=== PATIENT | female | born 1930 | race Caucasian/White ===

== ENCOUNTER 2019-01-23 20:22 | Observation (INO) | payer MEDICARE, OTHER ==
[2019-01-23 22:21] LABS: ANION GAP 14.7; CHLORIDE,CL 100 mmol/L (101-111); SODIUM,NA 136 mmol/L (135-145)
--- NOTE | 2019-01-23 22:26 | EDM.PDOC ---
"ED HPI GENERAL MEDICAL PROBLEM - General Chief Complaint: General Stated Complaint: LEGS SWELLING Time Seen by Provider: 01/23/19 20:40 Source of Information: Reports: Patient History Limitations: Reports: Language Barrier (hard of hearing) - History of Present Illness INITIAL COMMENTS - FREE TEXT/NARRATIVE: ED ambulatory with c/o swelling to lower legs, usually just one but now both. Limiting her water today and not helping. Denies chest pain or shortness of breath, admits to tiring easily for long time. Hx afib. refusing anticoagulants because the way they make her feel. family state patient aware of increased risk for stroke, but does take baby aspirin daily. Head feels stuffy and occasional productive cough clear phlegm. Daughters report BP high 2 weeks ago, noticed patient not taking meds correctly then dose changed and now taking consistently. No new changes in weakness. Has sused walker since last winter. - Related Data Allergies Allergy/AdvReac Type Severity Reaction Status Date / Time No Known Allergies Allergy Verified 01/24/19 00:29 Home Meds: Home Meds Antiox#10/Om3/DHA/EPA/Lut/Zeax [I-Caps with Lutein-[place] 3 SFG] 1 each PO BID [History] Levothyroxine [Levothroid] 137 mcg PO ACBREAKFAST 01/24/19 [History] Lisinopril 10 mg PO DAILY 01/24/19 [History] Potassium Chloride 10 meq PO DAILY 01/24/19 [History] Simvastatin 20 mg PO DAILY 01/24/19 [History] Sodium Chloride 15 ml OP QID PRN 01/24/19 [History] amLODIPine [Norvasc] 5 mg PO DAILY 01/24/19 [History] hydroCHLOROthiazide [Hydrochlorothiazide] 25 mg PO DAILY 01/24/19 [History] Past Medical History HEENT History: Reports: Cataract, Hard of Hearing, Macular Degeneration Cardiovascular History: Reports: Afib, High Cholesterol, Hypertension Endocrine/Metabolic History: Reports: Osteoporosis Other Endocrine/Metabolic History: daughter states mom has something wrong with her thyroid. - Past Surgical History HEENT Surgical History: Reports: Cataract Surgery GI Surgical History: Reports: Cholecystectomy Female Surgical History: Reports: Hysterectomy Social & Family History - Family History Family Medical History: Noncontributory - Tobacco Use Smoking Status *Q: Never Smoker Second Hand Smoke Exposure: No - Caffeine Use Caffeine Use: Reports: None - Recreational Drug Use Recreational Drug Use: No ED ROS GENERAL - Review of Systems Review Of Systems: See Below Constitutional: Reports: Malaise, Fatigue. Denies: Fever, Chills, Diaphoresis, Decreased Appetite HEENT: Reports: Other (limited vision bilateral macualr degeneration) Cardiovascular: Reports: Blood Pressure Problem (2 weeks ago high,), Edema. Denies: Chest Pain, Orthopnea, Syncope Endocrine: Reports: No Symptoms GI/Abdominal: Reports: No Symptoms : Reports: No Symptoms Musculoskeletal: Reports: No Symptoms Neurological: Reports: Difficulty Walking (feels off balance) Psychiatric: Denies: Confusion ED EXAM, GENERAL - Physical Exam Exam: See Below Exam Limited By: No Limitations General Appearance: Alert, No Apparent Distress Eye Exam: Bilateral Eye: EOMI (sluggish), PERRL Ears: Normal External Exam, Hearing Loss Ear Exam: Bilateral Ear: Canal Normal, TM normal Nose: Normal Inspection Throat/Mouth: Normal Inspection Head: Atraumatic, Normocephalic Neck: Normal Inspection Respiratory/Chest: No Respiratory Distress, Lungs Clear, Decreased Breath Sounds (bilateral bases) Cardiovascular: Normal Peripheral Pulses, Irregularly Irregular. No: No Edema ( 3+) GI/Abdominal: Normal Bowel Sounds, Soft Back Exam: Full Range of Motion Extremities: Normal Range of Motion, Other (3 + edema bilateral low4er extremities below knees). No: No Pedal Edema, Increased Warmth Neurological: Alert, Oriented, Normal Cognition, Normal Gait, No Motor/Sensory Deficits, Other (no weakness ) Psychiatric: Normal Affect, Normal Mood Skin Exam: Warm, Dry, Intact, Normal Color Course - Vital Signs Last Recorded V/S: Last Vital Signs Temp 98.9 F 01/24/19 00:05 Pulse 97 01/24/19 00:05 Resp 16 01/24/19 00:05 BP 146/83 H 01/24/19 00:05 Pulse Ox 95 01/24/19 00:05 - Orders/Labs/Meds Orders: Active Orders 24 hr Category Date Time Status EKG 12 Lead [EKG Documentation Completion] [RC] URGENT Care 01/23/19 21:26 Active Head wo Cont [CT] Urgent Exams 01/23/19 22:36 Taken Code Status [Resuscitation Status] Stat Resus Stat 01/23/19 22:37 Ordered Medication Orders Enoxaparin Sodium (Lovenox) 40 mg SUBCUT DAILY [facility] Last Admin: 01/24/19 02:27 Dose: 40 mg Furosemide (Lasix) 40 mg IVPUSH DAILY [facility] Hydrochlorothiazide (Hydrochlorothiazide) 25 mg PO DAILY [facility] Levothyroxine Sodium (Levothyroxine) 112 mcg PO ACBREAKFAST RISA Levothyroxine Sodium (Levothyroxine) 25 mcg PO ACBREAKFAST [facility] Lisinopril (Prinivil) 10 mg PO DAILY [facility] Multivitamins/Minerals (I-Luis Fernando) 1 each PO BID RISA Simvastatin (Zocor) 20 mg PO DAILY [facility] Sodium Chloride (Saline Flush) 10 ml FLUSH ASDIRECTED PRN PRN Reason: Keep Vein Open Sodium Chloride (Saline Flush) 10 ml FLUSH ASDIRECTED PRN PRN Reason: Keep Vein Open Sodium Chloride (Jose De Jesus 128 5% Ophth Soln) 15 ml EYEBOTH QID PRN PRN Reason: Dry Eyes Labs: Laboratory Tests 01/23/19 01/23/19 01/23/19 Range/Units 21:42 21:42 21:42 WBC 6.2 (5.0-10.0) 10^3/uL RBC 4.80 (4.2-5.4) 10^6/uL Hgb 13.4 (12.0-16.0) g/dL Hct 40.2 (37.0-47.0) % MCV 83.8 (80-100) fL MCH 27.9 (27.0-34.0) pg MCHC 33.3 (33.0-35.0) g/dL Plt Count 261 (150-450) 10^3/uL Neut % (Auto) 57.5 (42.2-75.2) % Lymph % (Auto) 21.1 (20.5-50.1) % [place] % (Auto) 16.6 H (2-8) % Eos % (Auto) 4.2 H (1.0-3.0) % Baso % (Auto) 0.6 (0.0-1.0) % PT 9.8 (9.0-12.0) SEC INR 1.0 (0.9-1.2) Sodium 136 (135-145) mmol/L Potassium 3.7 (3.6-5.0) mmol/L Chloride 100 L (101-111) mmol/L Carbon Dioxide 25.0 (21.0-31.0) mmol/L Anion Gap 14.7 BUN 25 H (7-18) mg/dL Creatinine 1.2 (0.6-1.3) mg/dL Est Cr Clr Drug Dosing 25.14 mL/min Estimated GFR (MDRD) 42 BUN/Creatinine Ratio 20.83 Glucose 97 (74-105) mg/dL Calcium 9.1 (8.4-10.2) mg/dl Total Bilirubin 0.6 (0.2-1.0) mg/dL AST 17 (10-42) IU/L ALT 13 (10-60) IU/L Alkaline Phosphatase 62 (42-121) IU/L Troponin I < 0.02 (0.00-0.02) ng/ml B-Natriuretic Peptide 198 H (0-100) pg/ml Total Protein 6.9 (6.7-8.2) g/dl Albumin 4.2 (3.2-5.5) g/dl Globulin 2.7 Albumin/Globulin Ratio 1.56 TSH, Ultra Sensitive (0.45-5.33) uIu/mL Urine Color (YELLOW) Urine Appearance (CLEAR) Urine pH (5.0-9.0) Ur Specific [place] (1.005-1.030) Urine Protein (NEGATIVE) Urine Glucose (UA) (NEGATIVE) Urine Ketones (NEGATIVE) Urine Occult Blood (NEGATIVE) Urine Nitrite (NEGATIVE) Urine Bilirubin (NEGATIVE) Urine Urobilinogen (0.2-1.0) mg/dL Ur Leukocyte Esterase (NEGATIVE) 01/23/19 01/23/19 Range/Units 21:42 22:15 WBC (5.0-10.0) 10^3/uL RBC (4.2-5.4) 10^6/uL Hgb (12.0-16.0) g/dL Hct (37.0-47.0) % MCV (80-100) fL MCH (27.0-34.0) pg MCHC (33.0-35.0) g/dL Plt Count (150-450) 10^3/uL Neut % (Auto) (42.2-75.2) % Lymph % (Auto) (20.5-50.1) % Dent % (Auto) (2-8) % Eos % (Auto) (1.0-3.0) % Baso % (Auto) (0.0-1.0) % PT (9.0-12.0) SEC INR (0.9-1.2) Sodium (135-145) mmol/L Potassium (3.6-5.0) mmol/L Chloride (101-111) mmol/L Carbon Dioxide (21.0-31.0) mmol/L Anion Gap BUN (7-18) mg/dL Creatinine (0.6-1.3) mg/dL Est Cr Clr Drug Dosing mL/min Estimated GFR (MDRD) BUN/Creatinine Ratio Glucose (74-105) mg/dL Calcium (8.4-10.2) mg/dl Total Bilirubin (0.2-1.0) mg/dL AST (10-42) IU/L ALT (10-60) IU/L Alkaline Phosphatase (42-121) IU/L Troponin I (0.00-0.02) ng/ml B-Natriuretic Peptide (0-100) pg/ml Total Protein (6.7-8.2) g/dl Albumin (3.2-5.5) g/dl Globulin Albumin/Globulin Ratio TSH, Ultra Sensitive 0.87 (0.45-5.33) uIu/mL Urine Color Yellow (YELLOW) Urine Appearance Clear (CLEAR) Urine pH 5.5 (5.0-9.0) Ur Specific [place] 1.010 (1.005-1.030) Urine Protein Negative (NEGATIVE) Urine Glucose (UA) Negative (NEGATIVE) Urine Ketones Negative (NEGATIVE) Urine Occult Blood Negative (NEGATIVE) Urine Nitrite Negative (NEGATIVE) Urine Bilirubin Negative (NEGATIVE) Urine Urobilinogen 0.2 (0.2-1.0) mg/dL Ur Leukocyte Esterase Negative (NEGATIVE) Meds: Medications Generic Name Dose Route Start Last Admin Trade Name Freq PRN Reason Stop Dose Admin Enoxaparin Sodium 40 mg 01/24/19 02:07 01/24/19 02:27 Lovenox SUBCUT 40 mg DAILY RISA Administration Furosemide 40 mg 01/24/19 09:00 Lasix IVPUSH DAILY [facility] Hydrochlorothiazide 25 mg 01/24/19 09:00 Hydrochlorothiazide PO DAILY RISA Levothyroxine Sodium 112 mcg 01/24/19 06:00 Levothyroxine PO ACBREAKFAST RISA Levothyroxine Sodium 25 mcg 01/24/19 06:00 Levothyroxine PO ACBREAKFAST RISA Lisinopril 10 mg 01/24/19 09:00 Prinivil PO DAILY [facility] Multivitamins/Minerals 1 each 01/24/19 09:00 I-Luis Fernando PO BID RISA Simvastatin 20 mg 01/24/19 09:00 Zocor PO DAILY RISA Sodium Chloride 10 ml 01/24/19 02:01 Saline Flush FLUSH ASDIRECTED PRN Keep Vein Open Sodium Chloride 10 ml 01/24/19 02:01 Saline Flush FLUSH ASDIRECTED PRN Keep Vein Open Sodium Chloride 15 ml 01/24/19 02:04 Jose De Jesus 128 5% Ophth Soln EYEBOTH QID PRN Dry Eyes - Radiology Interpretation Free Text/Narrative:: [facility] Final Radiology Report Call: [phone] assistance Online chat: [email or web address] Name: HAROON SPRAGUE Age: 88Years F Date: 01/23/2019 SSN: -- : [id number] Study: CT HEAD WO Requesting Physician: JENNIFER VASQUES Images: 174 Addl Studies: Provided Clinical History: Contrast: Without Contrast Medium: Contrast Amount: Contrast Method: Page 1 of 2 EXAM: CT Head Without Contrast EXAM DATE/TIME: 01/23/2019 10:50 PM CLINICAL HISTORY: 88 years old, female; Signs and symptoms; Patient HX: Dizziness intermittent one week, afib TECHNIQUE: Imaging protocol: Axial computed tomography images of the head without contrast. Coronal and sagittal reformatted images were created and reviewed. Radiation optimization: All CT scans at this facility use at least one of these dose optimization techniques: automated exposure control; mA and/or kV adjustment per patient size (includes targeted exams where dose is matched to clinical indication); or iterative reconstruction. COMPARISON: No relevant prior studies available. FINDINGS: Brain: Age-related atrophy and chronic white matter ischemic changes, with no evidence of an acute intracranial abnormality. No hemorrhage, mass effect or midline shift. Encephalomalacia changes and within the left posterior parietal region. 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 Ventricles: Normal. No ventriculomegaly. Bones/joints: Unremarkable. No acute fracture. Sinuses: Visualized sinuses are unremarkable. No fluid levels. Mastoid air cells: Visualized mastoid air cells are well aerated. No mastoid effusion. Soft tissues: Unremarkable. Vasculature: The vasculature demonstrates diffuse moderate atherosclerotic calcification. IMPRESSION: HAROON SPRAGUE | Final Radiology Report CONFIDENTIALITY STATEMENT This report is intended only for use by the referring physician, and only in accordance with law. If you received this in error, call [phone]. Page 2 of 2 1. Age-related atrophy and chronic white matter ischemic changes, with no evidence of an acute intracranial abnormality. 2. No hemorrhage, mass effect or midline shift. Thank you for allowing us to participate in the care of your patient. Dictated and Authenticated by: Bipin Clements DO 01/23/2019 11:03 PM Central Time ( [facility] - [facility] Final Radiology Report Call: [phone] assistance Online chat: [email or web address] Name: HAROON SPRAGUE Age: 88Years F Date: 01/23/2019 SSN: -- : [id number] Study: XR CHEST 1 VIEW FRONTAL Requesting Physician: JENNIFER VASQUES Images: 1 Addl Studies: Provided Clinical History: Contrast: Contrast Medium: Contrast Amount: Contrast Method: Page 1 of 2 EXAM: XR Chest, 1 View EXAM DATE/TIME: 01/23/2019 9:34 PM CLINICAL HISTORY: 88 years old, female; Signs and symptoms; Cough and other: Edema TECHNIQUE: Imaging protocol: XR of the chest, 1 view. COMPARISON: No relevant prior studies available. FINDINGS: Lungs: Nonspecific bibasilar consolidation is present, consistent with atelectasis, edema, or pneumonia. Pleural space: Small bilateral pleural effusions are present. Heart/Mediastinum: The heart demonstrates mild diffuse enlargement. Diaphragm: There is nonspecific elevation of the right hemidiaphragm. Bones/joints: Old ununited fracture of the midshaft of the right clavicle. Moderate degenerative changes of both shoulders. Soft tissues: The vasculature demonstrates diffuse mild atherosclerotic calcification. IMPRESSION: 1. Nonspecific bibasilar consolidation is present, consistent with atelectasis, edema, or pneumonia. 2. Small bilateral pleural effusions are present. Thank you for allowing us to participate in the care of your patient. HAROON SPRAGUE | Final Radiology Report CONFIDENTIALITY STATEMENT This report is intended only for use by the referring physician, and only in accordance with law. If you received this in error, call [phone]. Page 2 of 2 Dictated and Authenticated by: Bipin Clements DO 01/23/2019 9:49 PM Central Time ([place] & [place]) - Re-Assessments/Exams Free Text/Narrative Re-Assessment/Exam: 01/24/19 00:17 Discussion with patient and family. Patient code status DNR/DNI per patient request. Patient and family informed regarding findings. Discussed possible transfer vs admitting at [facility]. Patient refuses transfer. Family note difficulty getting patient to leave home fro groceries much less to . Discussed potential consults with specailties. Patient refused. Departure - Departure Time of Disposition: 00:05 Disposition: Refer to Observation Condition: Good Clinical Impression: Peripheral edema, Chronic atrial fibrillation, Dizziness, nonspecific HTN (hypertension) Qualifiers: Hypertension type: essential hypertension Qualified Code(s): I10 - Essential ( primary) hypertension - Discharge Information *PRESCRIPTION DRUG MONITORING PROGRAM REVIEWED*: Not Applicable *COPY OF PRESCRIPTION DRUG MONITORING REPORT IN PATIENT LUISITO: No - My Orders Last 24 Hours: My Active Orders 01/23/19 21:26 EKG 12 Lead [EKG Documentation Completion] [RC] URGENT 01/23/19 22:36 Head wo Cont [CT] Urgent 01/23/19 22:37 Code Status [Resuscitation Status] Stat - Assessment/Plan Last 24 Hours: My Active Orders 01/23/19 21:26 EKG 12 Lead [EKG Documentation Completion] [RC] URGENT 01/23/19 22:36 Head wo Cont [CT] Urgent 01/23/19 22:37 Code Status [Resuscitation Status] Stat"
[2019-01-24] MEDS ORDERED: Sodium Chloride 0.9% 10 ML Syringe FLUSH PRN ×2 (02:01)
[2019-01-24] MEDS ORDERED: Sodium Chloride 5% Ophth Soln 15 ML Bottle EYEBOTH PRN (02:04)
--- NOTE | 2019-01-24 02:08 | PCM.HP ---
H&P History of Present Illness - General Date of Service: 01/24/19 Admit Problem/Dx: Admission Diagnosis/Problem Admission Diagnosis/Problem Back pain Source of Information: Patient History Limitations: Reports: No Limitations - History of Present Illness Initial Comments - Free Text/Narative: 88 yo F with PMH of hypertension, hypothyroidism, macular degeneration, presbycusis who presents with pedal edema, dizziness. Pedal edema has been ongoing for 2 weeks, R > L, non-tender Was recently started on amlodipine per ED staff during this time period No chest pain, no SOB, no abd pain Also complains of intermittent dizziness/light headedness. No weakness of any ext, no sensory symptoms. - Related Data Allergies/Adverse Reactions: Allergies Allergy/AdvReac Type Severity Reaction Status Date / Time No Known Allergies Allergy Verified 01/24/19 00:29 Home Medications: Home Meds Antiox#10/Om3/DHA/EPA/Lut/Zeax [I-Caps with Lutein-[place] 3 SFG] 1 each PO BID [History] Levothyroxine [Levothroid] 137 mcg PO ACBREAKFAST 01/24/19 [History] Lisinopril 10 mg PO DAILY 01/24/19 [History] Potassium Chloride 10 meq PO DAILY 01/24/19 [History] Simvastatin 20 mg PO DAILY 01/24/19 [History] Sodium Chloride 15 ml OP QID PRN 01/24/19 [History] amLODIPine [Norvasc] 5 mg PO DAILY 01/24/19 [History] hydroCHLOROthiazide [Hydrochlorothiazide] 25 mg PO DAILY 01/24/19 [History] Past Medical History HEENT History: Reports: Cataract, Hard of Hearing, Macular Degeneration Cardiovascular History: Reports: Afib, High Cholesterol, Hypertension MANAGER AMBULATORY History: Reports: Other OB/BYN History: 4 nvd Endocrine/Metabolic History: Reports: Osteoporosis Other Endocrine/Metabolic History: daughter states mom has something wrong with her thyroid. - Past Surgical History HEENT Surgical History: Reports: Cataract Surgery GI Surgical History: Reports: Cholecystectomy Female Surgical History: Reports: Hysterectomy Social & Family History - Family History Family Medical History: Noncontributory - Tobacco Use Smoking Status *Q: Never Smoker Years of Tobacco use: 70 Packs/Tins Daily: 1 Used Tobacco, but Quit: Yes Month/Year Tobacco Last Used: sep 2017 Second Hand Smoke Exposure: No - Caffeine Use Caffeine Use: Reports: None - Recreational Drug Use Recreational Drug Use: No H&P Review of Systems - Review of Systems: Review Of Systems: ROS reveals no pertinent complaints other than HPI. General: Reports: No Symptoms HEENT: Reports: No Symptoms Pulmonary: Reports: No Symptoms Cardiovascular: Reports: No Symptoms Gastrointestinal: Reports: No Symptoms Genitourinary: Reports: No Symptoms Musculoskeletal: Reports: Other (bilateral leg swelling) Exam - Exam Exam: See Below - Vital Signs Vital Signs: Last Vital Signs Temp 37.2 C 01/24/19 00:05 Pulse 97 01/24/19 00:05 Resp 16 01/24/19 00:05 BP 146/83 H 01/24/19 00:05 Pulse Ox 95 01/24/19 00:05 Weight: 74.503 kg - Exam General: Alert, Oriented HEENT: Conjunctiva Clear Neck: Supple, Trachea Midline Lungs: Clear to Auscultation, Normal Respiratory Effort Cardiovascular: Regular Rate, Regular Rhythm GI/Abdominal Exam: Normal Bowel Sounds, Soft, Non-Tender Extremities: Pedal Edema Neurological: Cranial Nerves Intact, Normal Gait, Normal Speech - Patient Data Lab Results Last 24 hrs: Laboratory Results - last 24 hr 01/23/19 01/23/19 01/23/19 Range/Units 21:42 21:42 21:42 WBC 6.2 (5.0-10.0) 10^3/uL RBC 4.80 (4.2-5.4) 10^6/uL Hgb 13.4 (12.0-16.0) g/dL Hct 40.2 (37.0-47.0) % MCV 83.8 (80-100) fL MCH 27.9 (27.0-34.0) pg MCHC 33.3 (33.0-35.0) g/dL Plt Count 261 (150-450) 10^3/uL Neut % (Auto) 57.5 (42.2-75.2) % Lymph % (Auto) 21.1 (20.5-50.1) % [place] % (Auto) 16.6 H (2-8) % Eos % (Auto) 4.2 H (1.0-3.0) % Baso % (Auto) 0.6 (0.0-1.0) % PT 9.8 (9.0-12.0) SEC INR 1.0 (0.9-1.2) Sodium 136 (135-145) mmol/L Potassium 3.7 (3.6-5.0) mmol/L Chloride 100 L (101-111) mmol/L Carbon Dioxide 25.0 (21.0-31.0) mmol/L Anion Gap 14.7 BUN 25 H (7-18) mg/dL Creatinine 1.2 (0.6-1.3) mg/dL Est Cr Clr Drug Dosing 25.14 mL/min Estimated GFR (MDRD) 42 BUN/Creatinine Ratio 20.83 Glucose 97 (74-105) mg/dL Calcium 9.1 (8.4-10.2) mg/dl Total Bilirubin 0.6 (0.2-1.0) mg/dL AST 17 (10-42) IU/L ALT 13 (10-60) IU/L Alkaline Phosphatase 62 (42-121) IU/L Troponin I < 0.02 (0.00-0.02) ng/ml B-Natriuretic Peptide 198 H (0-100) pg/ml Total Protein 6.9 (6.7-8.2) g/dl Albumin 4.2 (3.2-5.5) g/dl Globulin 2.7 Albumin/Globulin Ratio 1.56 TSH, Ultra Sensitive (0.45-5.33) uIu/mL Urine Color (YELLOW) Urine Appearance (CLEAR) Urine pH (5.0-9.0) Ur Specific [place] (1.005-1.030) Urine Protein (NEGATIVE) Urine Glucose (UA) (NEGATIVE) Urine Ketones (NEGATIVE) Urine Occult Blood (NEGATIVE) Urine Nitrite (NEGATIVE) Urine Bilirubin (NEGATIVE) Urine Urobilinogen (0.2-1.0) mg/dL Ur Leukocyte Esterase (NEGATIVE) 01/23/19 01/23/19 Range/Units 21:42 22:15 WBC (5.0-10.0) 10^3/uL RBC (4.2-5.4) 10^6/uL Hgb (12.0-16.0) g/dL Hct (37.0-47.0) % MCV (80-100) fL MCH (27.0-34.0) pg MCHC (33.0-35.0) g/dL Plt Count (150-450) 10^3/uL Neut % (Auto) (42.2-75.2) % Lymph % (Auto) (20.5-50.1) % [place] % (Auto) (2-8) % Eos % (Auto) (1.0-3.0) % Baso % (Auto) (0.0-1.0) % PT (9.0-12.0) SEC INR (0.9-1.2) Sodium (135-145) mmol/L Potassium (3.6-5.0) mmol/L Chloride (101-111) mmol/L Carbon Dioxide (21.0-31.0) mmol/L Anion Gap BUN (7-18) mg/dL Creatinine (0.6-1.3) mg/dL Est Cr Clr Drug Dosing mL/min Estimated GFR (MDRD) BUN/Creatinine Ratio Glucose (74-105) mg/dL Calcium (8.4-10.2) mg/dl Total Bilirubin (0.2-1.0) mg/dL AST (10-42) IU/L ALT (10-60) IU/L Alkaline Phosphatase (42-121) IU/L Troponin I (0.00-0.02) ng/ml B-Natriuretic Peptide (0-100) pg/ml Total Protein (6.7-8.2) g/dl Albumin (3.2-5.5) g/dl Globulin Albumin/Globulin Ratio TSH, Ultra Sensitive 0.87 (0.45-5.33) uIu/mL Urine Color Yellow (YELLOW) Urine Appearance Clear (CLEAR) Urine pH 5.5 (5.0-9.0) Ur Specific [place] 1.010 (1.005-1.030) Urine Protein Negative (NEGATIVE) Urine Glucose (UA) Negative (NEGATIVE) Urine Ketones Negative (NEGATIVE) Urine Occult Blood Negative (NEGATIVE) Urine Nitrite Negative (NEGATIVE) Urine Bilirubin Negative (NEGATIVE) Urine Urobilinogen 0.2 (0.2-1.0) mg/dL Ur Leukocyte Esterase Negative (NEGATIVE) Result Diagrams: 01/23/19 21:42 01/23/19 21:42 Problem List Initiated/Reviewed/Updated: Yes Orders Last 24hrs: Active Orders 24 hr Category Date Time Status Patient Status [ADT] Routine ADT 01/24/19 02:01 Active Ambulate [RC] ASDIRECTED Care 01/24/19 02:01 Active EKG 12 Lead [EKG Documentation Completion] [RC] URGENT Care 01/23/19 21:26 Active Height and Weight [RC] DAILY Care 01/24/19 02:01 Active Oxygen Therapy [RC] PRN Care 01/24/19 02:01 Active Peripheral IV Care [RC] . DIRECTED Care 01/24/19 02:01 Active Up With Assistance [RC] ASDIRECTED Care 01/24/19 02:01 Active VTE/DVT Education [RC] PER UNIT ROUTINE Care 01/24/19 02:01 Active Vital Signs [RC] Q4H Care 01/24/19 02:01 Active OT Evaluation and Treatment [CONS] Routine Cons 01/24/19 02:01 Active PT Evaluation and Treatment [CONS] Routine Cons 01/24/19 02:01 Active Regular Diet [DIET] Diet 01/24/19 Breakfast Active Head wo Cont [CT] Urgent Exams 01/23/19 22:36 Taken Venous Doppler Lwr Ext Bi [US] Routine Exams 01/24/19 02:03 Ordered Antiox#10/Om3/DHA/EPA/Lut/Zeax [I-Caps with Lutein- Med 01/24/19 09:00 Ordered [place] 3 SFG] 1 each PO BID Enoxaparin [Lovenox] Med 01/24/19 02:07 Ordered 40 mg SUBCUT DAILY Furosemide [Lasix] Med 01/24/19 09:00 Ordered 40 mg IVPUSH DAILY Levothyroxine Med 01/24/19 06:00 Ordered 137 mcg PO ACBREAKFAST Lisinopril [Prinivil] Med 01/24/19 09:00 Ordered 10 mg PO DAILY Simvastatin [Simvastatin] Med 01/24/19 09:00 Ordered 20 mg PO DAILY Sodium Chloride 0.9% [Saline Flush] Med 01/24/19 02:01 Ordered 10 ml FLUSH ASDIRECTED PRN Sodium Chloride 0.9% [Saline Flush] Med 01/24/19 02:01 Ordered 10 ml FLUSH ASDIRECTED PRN Sodium Chloride 5% [Jose De Jesus 128 5% Ophth Soln] Med 01/24/19 02:04 Ordered 15 ml EYEBOTH QID PRN hydroCHLOROthiazide Med 01/24/19 09:00 Ordered 25 mg PO DAILY Peripheral IV Insertion Adult [OM.PC] Routine Oth 01/24/19 02:01 Ordered Saline Lock Insert [OM.PC] Routine Oth 01/24/19 02:01 Ordered Code Status [Resuscitation Status] Stat Resus Stat 01/23/19 22:37 Ordered Medication Orders Enoxaparin Sodium (Lovenox) 40 mg SUBCUT DAILY RISA Furosemide (Lasix) 40 mg IVPUSH DAILY RISA Hydrochlorothiazide (Hydrochlorothiazide) 25 mg PO DAILY RISA Lisinopril (Prinivil) 10 mg PO DAILY RISA Non-Formulary Medication (Antiox#10/Om3/Dha/Epa/Lut/Zeax [I-Caps With Lutein- [place] 3 Sfg]) 1 each PO BID RISA Non-Formulary Medication (Levothyroxine) 137 mcg PO ACBREAKFAST RISA Non-Formulary Medication (Simvastatin [Simvastatin]) 20 mg PO DAILY RISA Sodium Chloride (Saline Flush) 10 ml FLUSH ASDIRECTED PRN PRN Reason: Keep Vein Open Sodium Chloride (Saline Flush) 10 ml FLUSH ASDIRECTED PRN PRN Reason: Keep Vein Open Sodium Chloride (Jose De Jesus 128 5% Ophth Soln) 15 ml EYEBOTH QID PRN PRN Reason: Dry Eyes Assessment/Plan Comment:: #Bilateral leg swelling TSH normal, BNP mildly elevated [below 200], no other features of CHF Likely 2/2 calcium channel khris check Lower ext US bilateral to r/o DVT Hold amlodipine IV lasix, 40 mg daily #HTN Continue HCTZ and lasix #Hypothyroidism TSH normal continue levothyroxine #DVT ppx SC lovenox #Code status DNR/DNI
[2019-01-24] MEDS: Enoxaparin 40 MG/0.4 ML Syringe SUBCUT SCH ×2 (02:27→09:00)
[2019-01-24] MEDS: Levothyroxine 112 MCG Tab PO SCH (05:33)
[2019-01-24] MEDS: Levothyroxine 25 MCG Tab PO SCH (05:33)
[2019-01-24] MEDS: Furosemide 40 MG/4 ML VIAL IVPUSH SCH (08:59)
[2019-01-24] MEDS: Lutein/Minerals/Vit A,C & E Tab PO SCH ×2 (08:59→20:24)
[2019-01-24] MEDS: Lisinopril 10 MG Tab PO SCH (08:59)
[2019-01-24] MEDS: Hydrochlorothiazide 25 MG Tab PO SCH (08:59)
[2019-01-24] MEDS: Simvastatin 40 MG Tab PO SCH (09:00)
[2019-01-25] MEDS: Levothyroxine 112 MCG Tab PO SCH (05:51)
[2019-01-25] MEDS: Levothyroxine 25 MCG Tab PO SCH (05:51)
[2019-01-25] MEDS: Lisinopril 10 MG Tab PO SCH (09:00)
[2019-01-25] MEDS: Hydrochlorothiazide 25 MG Tab PO SCH (09:08)
[2019-01-25] MEDS: Lutein/Minerals/Vit A,C & E Tab PO SCH (09:08)
[2019-01-25] MEDS: Simvastatin 40 MG Tab PO SCH (09:08)
[2019-01-25] MEDS: Enoxaparin 40 MG/0.4 ML Syringe SUBCUT SCH (09:09)
[2019-01-25] MEDS: Furosemide 40 MG/4 ML VIAL IVPUSH SCH (09:09)
[2019-01-25] MEDS ORDERED: Potassium Chloride 10 MEQ Tab.ER PO ONE (14:38)
[2019-01-26] MEDS ORDERED: Enoxaparin 30 MG/0.3 ML Syringe SUBCUT SCH (09:00)
== END 2019-01-25 17:30 | disposition home or self-care (01) ==
LOC: DL.ED 20:22 → DL.MS 23:57 → UNDOADMOB 23:57 → DL.MS 01-24 02:01
PROVIDERS: ADMIT Hospitalist; ATTEND Internal Medicine
DX: M79.89 Other specified soft tissue disorders (principal); I48.2 Chronic atrial fibrillation; I10 Essential (primary) hypertension; E03.9 Hypothyroidism, unspecified; E78.00 Pure hypercholesterolemia, unspecified; H35.30 Unspecified macular degeneration; Z66 Do not resuscitate; Z79.899 Other long term (current) drug therapy
CPT/HCPCS: 36415; 70450; 71045; 80053; 81003; 83735; 83880; 84132; 84443; 84484; 85025; 85610; 93005; 93970; 96372; 96374; 96376; 97162-GP; 97165-GO; 99285-25; A9270-GY; G0378; J1650; J1940